=== PATIENT | female | born 1990 | race Caucasian/White ===

== ENCOUNTER 2021-07-25 09:58 | Inpatient (IN) | payer OTHER ==
[~2021-07-25] VITALS: Ht 172.7 cm; Wt 79.4 kg
--- NOTE | 2021-07-25 11:30 | NUR ---
both nares swabbed for covid-19 without complication. sample taken to lab.
--- NOTE | 2021-07-25 17:17 | NUR ---
07/25/21 1717 Berkley Razo 1715 PATIENT RECEIVING BLOCKS FROM WES BORING MACHINE SET UP OPERATOR IN OR [facility]. PATIENT AWAKE BUT DROWSY. BREAST FEEDING TO LEFT BREAST WITH FBC RN AT BEDSIDE. RESP EVEN AND UNLABORED, ROOM AIR SATS >93%. PATIENT DENIES PAIN OR NAUSEA.
[2021-07-26] MEDS ORDERED: DIGOX125 MCG PO (06:13)
[2021-07-26] MEDS ORDERED: BUPRENORPHINE HC2 MG SL (07:21)
--- NOTE | 2021-07-26 08:32 | PR ---
[facility] [address] [facility] [place], [place] [address] Signed PP Progress Notes Datetime Report Generated by CPN: 07/26/2021 08:32 SUBJECTIVE: [id number] Pain: Within Normal Limits Nausea/Vomiting: Denies Flatus: No Bowel Movement: No Vital Signs: [id number] Vital Signs: Reviewed; Within Normal Limits EXAM: Ongoing Cardiovascular: Normal Respiratory: Normal Abdomen/Uterus: Normal Lochia: Normal Breasts: Normal Extremities: Normal Incision: Normal Progress: Normal Exam Comments: NAD, sitting in bed RRR No dyspnea Abd SNTND Ext trace edema, neg Mariam's BL IMPRESSION/PLAN/PROCEDURES: [id number] Impression: Normal Progression Plan: Continue Present Management; Consult Procedures: None Progress Notes: POD #1 s/p RLTCS @ 36 5/7 weeks gestation for nonreassuring testing and MFM recommendation to deliver -Progressing well -Pain well controlled with TAP block -Recommend assistance with FGR baby Signing Physician: Corey Sherwood DO Copies: *Electronically Signed* 07/26/21 0832 COREY SHERWOOD DO PATIENT NAME: MARIAH CHRISTIAN PROGRESS NOTE DATE OF : 86 PHYSICIAN: COREY SHERWOOD DO RPT #: [id number] REPORT IS CONFIDENTIAL AND NOT TO BE RELEASED WITHOUT AUTHORIZATION [address] [address] Signed ~ *Electronically Signed* 07/26/21 0832 COREY SHERWOOD DO PATIENT NAME: MARIAH CHRISTIAN PROGRESS NOTE DATE OF : [birth year] PHYSICIAN: COREY SHERWOOD DO RPT #: [id number] REPORT IS CONFIDENTIAL AND NOT TO BE RELEASED WITHOUT AUTHORIZATION
--- NOTE | 2021-07-27 10:12 | PR ---
[facility] [address] [place], [place] [address] Signed PP Progress Notes Datetime Report Generated by CPN: 07/27/2021 10:12 SUBJECTIVE: [id number] Pain: Within Normal Limits Nausea/Vomiting: Denies Flatus: Yes Bowel Movement: Yes Vital Signs: [id number] Vital Signs: Reviewed; Within Normal Limits EXAM: Ongoing Cardiovascular: Normal Respiratory: Normal Abdomen/Uterus: Normal Lochia: Normal Vulva/Perineum: Normal Breasts: Normal Extremities: Normal Incision: Normal Progress: Normal Exam Comments: NAD, ambulating around room RRR, no pallor No dyspnea/retractions Abd SNTND, FFBU, incision c/d/i and healing well Ext: trace edema Neg Mariam's BL IMPRESSION/PLAN/PROCEDURES: [id number] Impression: Normal Progression; Pain Plan: Continue Present Management Other Plans: Anesthesia consult Procedures: None Progress Notes: POD#2 s/p RLTCS for FGR @ 36 5/7 weeks gestation -alternating tylenol/motrin for pain, ice to incision helpful but still having breakthrough incisional pain. Per our pain management plan, will repeat TAP block. Anesthesia notified. -otherwise progressing well Anticipate DC to boarder status tomorrow, baby on 5 day monitoring for SANDRITA Signing Physician: Corey Sherwood DO *Electronically Signed* 07/27/21 1012 COREY SHERWOOD DO PATIENT NAME: MARIAH CHRISTIAN PROGRESS NOTE DATE OF : 86 PHYSICIAN: COREY SHERWOOD DO RPT #: [id number] REPORT IS CONFIDENTIAL AND NOT TO BE RELEASED WITHOUT AUTHORIZATION [facility] [address] [place], [place] [address] Signed Copies: ~ *Electronically Signed* 07/27/21 1012 COREY SHERWOOD DO PATIENT NAME: MARIAH CHRISTIAN PROGRESS NOTE DATE OF : 86 PHYSICIAN: COREY SHERWOOD DO RPT #: [id number] REPORT IS CONFIDENTIAL AND NOT TO BE RELEASED WITHOUT AUTHORIZATION
--- NOTE | 2021-07-28 12:47 | PR ---
[facility] [address] [place], [place] [address] Signed PP Progress Notes Datetime Report Generated by CPN: 07/28/2021 12:47 SUBJECTIVE: [id number] Pain: Within Normal Limits Nausea/Vomiting: Denies Flatus: Yes Bowel Movement: Yes Vital Signs: [id number] Vital Signs: Reviewed; Within Normal Limits EXAM: Ongoing Cardiovascular: Normal Respiratory: Normal Abdomen/Uterus: Normal Lochia: Normal Vulva/Perineum: Normal Breasts: Normal Extremities: Normal Incision: Normal Progress: Normal Exam Comments: NAD, sitting in bed nursing baby RRR No dyspnea/ retractions Abd SNTND, FFBU Incision: c/d/i, sandra in place Ext: trace edema, Neg Mariam's BL IMPRESSION/PLAN/PROCEDURES: [id number] Impression: Normal Progression Plan: Continue Present Management; Discharge Other Plans: Anesthesia consult Procedures: None Progress Notes: POD#3 s/p RLTCS for FGR/ nonreassuring status at 36 5/7 weeks gestation -Baby to be monitored for total of 5 d for SANDRITA on buprenorphine -Pain well-controlled with TAP blocks and scheduled motrin/ tylenol Anticipate DC to boarder status, will leave sandra in place until baby discharged home Signing Physician: Corey Sherwood DO *Electronically Signed* 07/28/21 1247 COREY SHERWOOD DO PATIENT NAME: MARIAH CHRISTIAN PROGRESS NOTE DATE OF : 86 PHYSICIAN: COREY SHERWOOD DO RPT #: [id number] REPORT IS CONFIDENTIAL AND NOT TO BE RELEASED WITHOUT AUTHORIZATION [address] [address] Signed Copies: ~ *Electronically Signed* 07/28/21 1247 COREY SHERWOOD DO PATIENT NAME: MARIAH CHRISTIAN PROGRESS NOTE DATE OF : [birth year] PHYSICIAN: COREY SHERWOOD DO RPT #: [id number] REPORT IS CONFIDENTIAL AND NOT TO BE RELEASED WITHOUT AUTHORIZATION
--- NOTE | 2021-07-31 08:52 | OR ---
[address] [place], [place] [address] Signed DATE OF OPERATION: Electronically Signed By: COREY SHERWOOD DO 07/31/21 0852 PATIENT NAME: MARIAH CHRISTIAN OPERATIVE REPORT DATE OF : 86 REPORT #: [id number] PHYSICIAN: COREY SHERWOOD DO PCP: MARITZA QUINTERO MD REPORT IS CONFIDENTIAL AND NOT TO BE RELEASED WITHOUT AUTHORIZATION [address] [place], [place] [address] Signed 07/25/2021 SURGEON: Corey Sherwood DO PROCEDURE: Repeat low-transverse . PREOPERATIVE DIAGNOSES: 1. Asymmetric growth restriction. 2. Non-reassuring status. 3. Oligohydramnios. 4. History of prior . 5. History of demise. 6. Substance use disorder. 7. 36 weeks gestation. POSTOPERATIVE DIAGNOSES: 1. growth restriction. 2. Non-reassuring status. 3. Oligohydramnios. 4. History of prior . 5. History of demise. 6. Substance use disorder. 7. 36 weeks gestation. WATCH DIAL STONER: Maritza Quintero MD COMPLICATIONS: None. BLOOD LOSS: 550 mL. FINDINGS: Viable male , Apgars 9 and 9 at 1 and 5 minutes respectively, weighing 4 pounds 11 ounces, delivered in the right occiput anterior position. Normal-appearing bilateral tubes and ovaries. Moderate scarring down to the level of the rectus fascia. No bladder adhesions or intra-abdominal adhesions noted. INDICATIONS: Electronically Signed By: COREY SHERWOOD DO 07/31/21 0852 PATIENT NAME: MARIAH CHRISTIAN OPERATIVE REPORT DATE OF : 86 REPORT #: [id number] PHYSICIAN: COREY SHERWOOD DO PCP: MARITZA QUINTERO MD REPORT IS CONFIDENTIAL AND NOT TO BE RELEASED WITHOUT AUTHORIZATION [address] [address] Signed The patient is a 30-year-old female at 36 5/7 weeks gestation who has been closely followed this for history of demise and history of intrauterine growth restriction. She has been diagnosed during this with asymmetric growth restriction with abdominal circumference measuring less than 3rd percentile. She was scheduled for testing today which was included FARHAT 4.2 (MVP 2.4) and 2 points off on BPP for breathing. Case was discussed with maternal medicine who recommended delivery today rather than wait until scheduled in two days. Risks, benefits, and alternatives were discussed with the patient who elected to proceed. DESCRIPTION OF PROCEDURE: The patient was taken back to the operating room where she was given 2 g Ancef and combined spinal and epidural were placed by anesthesia as per her preoperative pain management plan. She was positioned supine with a leftward tilt and prepped and draped in the normal sterile fashion. A Pfannenstiel incision was made with a scalpel through her prior scar and carried down to the underlying layer of fascia with moderate scarring noted as above. The fascia was nicked laterally and extended with Lewis scissors. Inferior lip of the fascia was grasped and elevated with Vic clamps. Underlying rectus muscle dissected off bluntly and sharply with Lewis scissors without difficulty and fascia was released. In a similar fashion, the superior margin of the fascia was grasped and elevated and underlying rectus muscle was dissected off bluntly and sharply with Lewis scissors again without significant difficulty. Peritoneum was grasped with hemostats, elevated and entered sharply with Metzenbaum scissors with good visualization. This was extended superiorly and inferiorly with Lewis scissors with good visualization of the bladder at all times. Hysterotomy was made with a scalpel and superior and inferior margins of hysterotomy were grasped with Allis-Bardolph to allow for further elevation to enter the uterus safely in the context of oligohydramnios. Hysterotomy was completed and extended laterally with gentle digital traction. head was easily elevated to the level of the hysterotomy and delivered through with remainder of the 's body delivered without any difficulty. The cord was immediately doubly clamped and cut and baby gave a strong spontaneous cry and baby was handed off to waiting nursery team. Cord blood was collected for type and Manuel. Segment of cord was set aside for additional substance testing and placenta was delivered manually and noted to be intact with a centrally inserted 3 vessel cord. Uterus was cleared of clots and debris. The bowel was packed with Electronically Signed By: COREY SHERWOOD DO 07/31/21 0852 PATIENT NAME: MARIAH CHRISTIAN OPERATIVE REPORT DATE OF : 86 REPORT #: [id number] PHYSICIAN: COREY SHERWOOD DO PCP: MARITZA QUINTERO MD REPORT IS CONFIDENTIAL AND NOT TO BE RELEASED WITHOUT AUTHORIZATION [facility] [address] [place], [place] [address] Signed a lap sponge soaked in sterile saline and the uterus was closed in a two-layer closure with 0 Monocryl, 1st in a running locked manner and secondly in an imbricating manner. An area of persistent oozing was noted just medial to the left apex. Figure of eight stitch with 0 Monocryl was placed with resulting hemostasis. The pelvis was suction irrigated with warm sterile saline and excellent hemostasis was noted. Uterus was inspected with tubes and ovaries noted to be normal as above. Bowel packing was removed. Eric retractor was removed. ACell sheet was placed overlying the hysterotomy. The peritoneum was closed with 2-0 Vicryl in a running fashion. Rectus muscle was reapproximated in midline with 0 Vicryl in a simple interrupted fashion. Perforating vessels were cauterized with Bovie cautery and ACell powder was applied over the rectus. Fascia was closed with 0 Vicryl working laterally to medially with two separate sutures in a running fashion, 1st from [id number] and then from [id number]-ov-zfyde meeting at midline. Subcutaneous layer was inspected for perforating vessels which were cauterized with Bovie cautery. This was then reapproximated with 3-0 Vicryl in a running fashion and skin was closed with skin clips. Sponge and instrument counts were correct. Uterus was Crede'd. Cervix was noted to be less than 1 cm dilated without any clots expelled from the uterus. The patient remained in the operating room for placement of TAP block for pain management. Corey Sherwood DO EMZ/MODL /[id number] Copies: ~ Electronically Signed By: COREY SHERWOOD DO 07/31/21 0852 PATIENT NAME: MARIAH CHRISTIAN OPERATIVE REPORT DATE OF : 86 REPORT #: [id number] PHYSICIAN: COREY SHERWOOD DO PCP: MARITZA QUINTERO MD REPORT IS CONFIDENTIAL AND NOT TO BE RELEASED WITHOUT AUTHORIZATION
== END 2021-07-28 17:02 | disposition home or self-care (01) | DRG 786 ==
LOC: FBCO 09:58 → US 10:00 → FBC 11:24
PROVIDERS: ADMIT Obstetrics & Gynecology; ATTEND Obstetrics & Gynecology
PROC: 3E0T3BZ Introduction of Anesthetic Agent into Peripheral Nerves and Plexi, Percutaneous Approach (ICD-10-PCS; 2021-07-25)
PROC: 10D00Z1 Extraction of Products of Conception, Low, Open Approach (ICD-10-PCS; principal; 2021-07-25 16:00)
DX: O36.5930 Maternal care for other known or suspected poor fetal growth, third trimester, not applicable or unspecified (principal); O60.14X0 Preterm labor third trimester with preterm delivery third trimester, not applicable or unspecified; O41.03X0 Oligohydramnios, third trimester, not applicable or unspecified; O99.324 Drug use complicating childbirth; O98.32 Other infections with a predominantly sexual mode of transmission complicating childbirth; Z3A.36 36 weeks gestation of pregnancy; Z20.822 Contact with and (suspected) exposure to COVID-19; Z37.0 Single live birth; O34.211 Maternal care for low transverse scar from previous cesarean delivery; F11.90 Opioid use, unspecified, uncomplicated; O76 Abnormality in fetal heart rate and rhythm complicating labor and delivery; A60.00 Herpesviral infection of urogenital system, unspecified
CPT/HCPCS: 01961; 76819; 76942; 85027; A9270; C9803; J0690; J1100; J1885; J2001; J2274; J2405; J2590; J2795; J7121; U0003

== ENCOUNTER 2023-10-07 10:22 | Inpatient (IN) | payer OTHER ==
[~2023-10-07] VITALS: Ht 172.7 cm; Wt 80.7 kg
--- NOTE | ~2023-10-07 | OR ---
[facility] [address] [place], [place] [address] Draft DATE OF OPERATION: 10/07/2023 SURGEON: Huy Pierre DO PREOPERATIVE DIAGNOSES: 1. Intrauterine at 36 weeks and 2 days gestation. 2. growth restriction. 3. Oligohydramnios. 4. History of prior section. 5. Opioid dependence, stable on buprenorphine. POSTOPERATIVE DIAGNOSES: 1. Intrauterine at 36 weeks and 2 days gestation. 2. growth restriction. 3. Oligohydramnios. 4. History of prior section. 5. Opioid dependence, stable on buprenorphine. 6. Abdominal adhesions. PROCEDURES PERFORMED: 1. Repeat low transverse delivery. 2. Lysis of adhesions. ANESTHESIA: Spinal with postoperative TAP block. PRODUCT MERCHANDISER: Sarahi Quintero MD ESTIMATED BLOOD LOSS: 650 mL. SPECIMEN: Placenta for IUGR and oligohydramnios. DRAINS: Cantu to gravity. COMPLICATIONS: None. PATIENT NAME: MARIAH CHRISTIAN OPERATIVE REPORT DATE OF : [birth year] REPORT #: [id number] PHYSICIAN: HUY PIERRE) PCP: NO PRIMARY CARE PHYSICIAN REPORT IS CONFIDENTIAL AND NOT TO BE RELEASED WITHOUT AUTHORIZATION [facility] [address] [place] [id number] [place] FINDINGS: Delivery of a viable male . Apgars X and X and weight X and X. Delivery in the KRYSTLE position with nuchal cord x1 loose. Clear amniotic fluid. Normal gross appearance of the placenta. Dense omental adhesions to the anterior abdominal wall. Careful vulvar exam demonstrates no HSV lesions. COMPLICATIONS: None. INDICATIONS: Ms. Christian is a very pleasant 32-year-old, G7, P0-3-3-3 with intrauterine at 36 weeks 2 days gestation presented for repeat testing. The patient's complicated by growth restriction and new onset oligohydramnios noted on ultrasound today. was also complicated by history of prior , buprenorphine dependence, stable on therapy. 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 Recommended a repeat low transverse delivery. Risks, benefits, and alternatives were discussed with the patient in detail. The case was previously discussed with Dr. Shyam Brooks, Maternal Medicine, who recommended delivery if the patient developed oligohydramnios. Risks, benefits, and alternatives were discussed in detail with the patient. The patient understands and wished to proceed with the procedure. TECHNIQUE: The patient was taken to the OR where a time-out was performed to confirm correct patient, correct procedure. Spinal anesthesia was adequately established. The patient was then prepped and draped in the supine position with a bump on the right hip. Vulvar exam was performed that demonstrated no HSV lesions and no evidence of rupture of membranes. The patient had previously denied prodrome of symptoms. A Cantu catheter was inserted. The patient received Ancef 2 g preoperatively per SCIP protocol and no heparin was indicated. Once spinal anesthetic was noted to be adequate, a Pfannenstiel skin incision was made using a surgical scalpel through the prior scar. Incision was carried down to the fascia and the fascia was nicked in the midline. Fascial incision was extended bilaterally using curved Lewis scissors. Fascia was grasped with Vic's, elevated, and the underlying rectus dissected off bluntly and sharply. The fascia was quite densely adhered to the fascia, but this brought down without difficulty. Rectus was then divided at the midline using hemostats and peritoneum was entered sharply with Metzenbaum scissors. Dense omental adhesions were noted to the anterior abdominal wall. These were gently taken down using bipolar cautery with LigaSure device. Once omental adhesions were freed, the remainder of the pelvis was inspected and found to be normal. The Eric self retractor was placed and lower uterine segment identified. Hysterotomy was performed using a surgical scalpel PATIENT NAME: MARIAH CHRISTIAN OPERATIVE REPORT DATE OF : 86 REPORT #: [id number] PHYSICIAN: HUY PIERRE (CAMILLE) DO PCP: NO PRIMARY CARE PHYSICIAN REPORT IS CONFIDENTIAL AND NOT TO BE RELEASED WITHOUT AUTHORIZATION [facility] [address] [place], [place] [address] Draft and clear amniotic fluid was noted. Hysterotomy was extended using blunt dissection. Surgeon's hand was placed in the uterine cavity. head elevated in the KRYSTLE position and delivered with the assistance of fundal pressure. Nuchal cord x1 was identified and reduced without difficulty. The was delivered without difficulty and was vigorous and cried upon delivery. Cord was doubly clamped and cut and the handed to waiting pediatric team for further care. Cord blood was obtained for routine analysis. The placenta was expressed, intact with a centrally inserted three-vessel cord with normal-appearing placenta. The uterus was cleared of any remaining products of conception or clot. Some brisk bleeding was noted from the left uterine artery and this was clamped with T clamp. The uterus was then closed in two layers of 0 Monocryl. The first being a running locked suture and the second being a running nonlocked suture. Small amount of oozing was noted along the hysterotomy repair and this was made hemostatic with multiple [id number]-wz-[id number] sutures of 0 Monocryl and 2-0 chromic. The pelvis was irrigated and found to be hemostatic. Normal tubes and ovaries were appreciated. The Eric self retractor was removed. Peritoneum was reapproximated using 2-0 Vicryl in a running nonlocked manner. Rectus was made hemostatic with judicious use of Bovie electrocautery and then re-approximated loosely in the midline with interrupted sutures of 0 Vicryl. The rectus was irrigated and found to be hemostatic and Meera was applied to this layer. The fascia was re-approximated using 0 Vicryl in a running nonlocked manner. Subcu was made hemostatic using judicious use of Bovie electrocautery. Subcu was re-approximated using 3-0 Vicryl in a running nonlocked manner. Skin was re-approximated using surgical sandra. The uterus was Crede'd for a scant amount of blood. Sponge, needle, and instrument counts correct x2 at the end of the procedure. Dr. Quintero was present and participated in all portions of the procedure. The patient remained in the OR for postoperative TAP block per Anesthesia. DO DANIELLA San/EDDI /[id number] Copies: PATIENT NAME: MARIAH CHRISTIAN OPERATIVE REPORT DATE OF : 86 REPORT #: [id number] PHYSICIAN: HUY PIERRE) PCP: NO PRIMARY CARE PHYSICIAN REPORT IS CONFIDENTIAL AND NOT TO BE RELEASED WITHOUT AUTHORIZATION [address] [address] Draft ~ PATIENT NAME: MARIAH CHRISTIAN OPERATIVE REPORT DATE OF : [birth year] REPORT #: [id number] PHYSICIAN: HUY PIERRE) PCP: NO PRIMARY CARE PHYSICIAN REPORT IS CONFIDENTIAL AND NOT TO BE RELEASED WITHOUT AUTHORIZATION
--- OUTSIDE RECORDS SUMMARY | ~2023-10-07 | XMS | Continuity of Care Document ---
Demographics + + + | Address | [address] | | | [place] [address] | + + + | Preferred Language | Unknown | + + + | Marital Status | Never | + + + | Jew Affiliation | Unknown | + + + | Race | White | + + + | Ethnic Group | Not or | + + + Author + + + | Author | [facility] | + + + | Organization | [facility] | + + + | Address | [address] | | | [place] [address] | + + + | Phone | | + + + Care Team Providers + + + + | Care Supervisor Filter Assembly Name | Role | Phone | + + + + Unavailable | Unavailable | + + + + Unavailable | Unavailable | + + + + Allergies No information. Encounters No information. Functional Status No information. Immunizations No information. Medications + + + + | date | description | facility | + + + + | 2023-07-15 00:00 | ibuprofen 800 mg oral | [facility] | | | tablet | [facility] | + + + + | 2023-08-05 00:00 | ibuprofen 800 mg oral | [facility] | | | tablet | [facility] | + + + + | 2023-08-13 00:00 | ibuprofen 800 mg oral | [facility] | | | tablet | [facility] | + + + + | 2023-08-14 00:00 | ibuprofen 800 mg oral | [facility] | | | tablet | [facility] | + + + + | 2023-08-27 00:00 | ibuprofen 800 mg oral | [facility] | | | tablet | [facility] | + + + + | 2023-09-22 00:00 | ibuprofen 800 mg oral | [facility] | | | tablet | [facility] | + + + + | 2023-10-01 00:00 | ibuprofen 800 mg oral | [facility] | | | tablet | [facility] | + + + + | 2023-10-02 00:00 | ibuprofen 800 mg oral | [facility] | | | tablet | [facility] | + + + + | 2023-07-15 00:00 | acetaminophen 500 mg oral | [facility] | | | tablet | [facility] | + + + + | 2023-08-05 00:00 | acetaminophen 500 mg oral | [facility] | | | tablet | [facility] | + + + + | 2023-08-13 00:00 | acetaminophen 500 mg oral | [facility] | | | tablet | [facility] | + + + + | 2023-08-14 00:00 | acetaminophen 500 mg oral | [facility] | | | tablet | [facility] | + + + + | 2023-08-27 00:00 | acetaminophen 500 mg oral | [facility] | | | tablet | [facility] | + + + + | 2023-09-22 00:00 | acetaminophen 500 mg oral | [facility] | | | tablet | [facility] | + + + + | 2023-10-01 00:00 | acetaminophen 500 mg oral | [facility] | | | tablet | [facility] | + + + + | 2023-10-02 00:00 | acetaminophen 500 mg oral | [facility] | | | tablet | [facility] | + + + + | 2023-07-15 00:00 | vitamin c 500 mg oral | [facility] | | | tablet | [facility] | + + + + | 2023-08-05 00:00 | vitamin c 500 mg oral | [facility] | | | tablet | [facility] | + + + + | 2023-08-13 00:00 | vitamin c 500 mg oral | [facility] | | | tablet | [facility] | + + + + | 2023-08-14 00:00 | vitamin c 500 mg oral | [facility] | | | tablet | [facility] | + + + + | 2023-08-27 00:00 | vitamin c 500 mg oral | [facility] | | | tablet | [facility] | + + + + | 2023-09-22 00:00 | vitamin c 500 mg oral | [facility] | | | tablet | [facility] | + + + + | 2023-10-01 00:00 | vitamin c 500 mg oral | [facility] | | | tablet | [facility] | + + + + | 2023-10-02 00:00 | vitamin c 500 mg oral | [facility] | | | tablet | [facility] | + + + + | 2023-07-15 00:00 | iron | [facility] | | | | [facility] | + + + + | 2023-08-05 00:00 | iron | [facility] | | | | [facility] | + + + + | 2023-08-13 00:00 | iron | [facility] | | | | [facility] | + + + + | 2023-08-14 00:00 | iron | [facility] | | | | [facility] | + + + + | 2023-08-27 00:00 | iron | [facility] | | | | [facility] | + + + + | 2023-09-22 00:00 | iron | [facility] | | | | [facility] | + + + + | 2023-10-01 00:00 | iron | [facility] | | | | [facility] | + + + + | 2023-10-02 00:00 | iron | [facility] | | | | [facility] | + + + + Problems + + + + | date | description | facility | + + + + | 2023-09-11 00:00 | history of substance abuse | [facility] | | | (situation) | [facility] | + + + + | 2023-09-11 00:00 | history of substance abuse | [facility] | | | (situation) | [facility] | + + + + | 2023-09-11 00:00 | History of substance use | [facility] | | | disorder | [facility] | + + + + | 2023-09-11 00:00 | History of substance use | [facility] | | | disorder | [facility] | + + + + Procedures No information. Results/Labs No information. Social History + + + + | date | description | facility | + + + + | 2023-07-15 00:00 | Current smoker | [facility] | | | | [facility] | + + + + | 2023-08-05 00:00 | Current smoker | [facility] | | | | [facility] | + + + + | 2023-08-13 00:00 | Current smoker | [facility] | | | | [facility] | + + + + | 2023-08-14 00:00 | Current smoker | [facility] | | | | [facility] | + + + + | 2023-08-27 00:00 | Current smoker | [facility] | | | | [facility] | + + + + | 2023-09-22 00:00 | Current smoker | [facility] | | | | [facility] | + + + + | 2023-10-01 00:00 | Current smoker | [facility] | | | | [facility] | + + + + | 2023-10-02 00:00 | Current smoker | [facility] | | | | [facility] | + + + + Vital Signs + + +---------+---------+ | date | measurement | value | units | + + +---------+---------+ | 2023-07-29 00:00 | BMI | 25.36 | kg/m2 | + + +---------+---------+ | 2023-07-29 00:00 | BP_diastolic | 71 | mmHg | + + +---------+---------+ | 2023-07-29 00:00 | BP_systolic | 122 | mmHg | + + +---------+---------+ | 2023-07-29 00:00 | heart_rate | 87 | /min | + + +---------+---------+ | 2023-07-29 00:00 | o2_saturation | 99 | % | + + +---------+---------+ | 2023-07-29 00:00 | temperature_metric | 36 | C | | | | | | + + +---------+---------+ | 2023-07-29 00:00 | | 96.8 | F | | | temperature_standar | | | | | d | | | + + +---------+---------+ | 2023-07-29 00:00 | weight_metric | 75.66 | kg | + + +---------+---------+ | 2023-07-29 00:00 | weight_standard | 166.8 | lb | + + +---------+---------+"
[~2023-10-07 10:22] MED LIST: BUPRENORPHINE HC2 MG SL; DIGOX125 MCG PO
[2023-10-07 13:06] LABS: HEMATOCRIT 34.3 % (35.0-50.0); HEMOGLOBIN 11.7 g/dL (12.0-18.0); MCH 29.5 (27-36); MCV 86.8 fl (81-99); RBC 3.96 M/ul (4.3-5.7); RDW 13.3 (10.5-15.0)
[2023-10-07 13:24] VITALS: BP 133/64
[2023-10-07 13:46] LABS: ABO O; ANTIBODY SCREEN NEGATIVE; RH POSITIVE
[2023-10-07 15:53] LABS: AMPHETAMINES, URINE NEGATIVE (NEGATIVE); BARBITURATES, URINE NEGATIVE (NEGATIVE); BENZODIAZEPINE, URINE NEGATIVE (NEGATIVE); BUPRENORPHINE, URINE POSITIVE (NEGATIVE); CANNABINOID, URINE NEGATIVE (NEGATIVE); COCAINE, URINE NEGATIVE (NEGATIVE); ECSTASY, URINE NEGATIVE (NEGATIVE); FENTANYL, URINE NEGATIVE (NEGATIVE); METHADONE, URINE NEGATIVE (NEGATIVE); OPIATES, URINE NEGATIVE (NEGATIVE); OXYCODONE, URINE NEGATIVE (NEGATIVE); PHENCYCLIDINE, URINE NEGATIVE (NEGATIVE)
[2023-10-07] MEDS ORDERED: TRANEXAMIC ACID IN NACL,ISO-OS 100 ML IV ONE (18:53)
[2023-10-07] MEDS ORDERED: OXYTOCIN 10 UNITS/ML VIAL ONE (18:57)
[2023-10-07] MEDS ORDERED: BUPIVACAINE 0.75% IN DEXTROSE 2 ML AMP ONE (18:57)
[2023-10-07] MEDS ORDERED: ondansetron HCL 4 MG/2 ML VIAL ONE (18:57)
[2023-10-07] MEDS ORDERED: LIDOCAINE HCL 2% 5 ML SDV ONE (18:57)
[2023-10-07] MEDS ORDERED: DEXAMETHASONE SOD PHOS 4 MG/ML VIAL ONE (18:57)
[2023-10-07] MEDS ORDERED: MORPHINE SULFATE 1 MG/ML VIAL ONE (18:57)
[2023-10-07] MEDS ORDERED: SODIUM CHLORIDE 0.9% 40 ML IV ONE (18:58)
[2023-10-07] MEDS ORDERED: Ropivacaine HCl 0.5% 30 ML VIAL ONE (18:58)
[2023-10-07] MEDS ORDERED: ePHEDrine sulfate 50 MG/ML AMP ONE (18:59)
[2023-10-07] MEDS ORDERED: CEFAZOLIN SODIUM 2 GM/20 ML SYR IV SCH (19:00)
[2023-10-07] MEDS ORDERED: LACTATED RINGER'S 1,000 ML IV SCH ×2 (19:00→21:13)
[2023-10-07] MEDS ORDERED: SOD+POT BICARB/CITRIC ACID 2 EA TABLET.EFF PO ONE (19:00)
[2023-10-07] MEDS ORDERED: LACTATED RINGER'S 1,000 ML IV PRN (19:00)
[2023-10-07] MEDS ORDERED: droPERidol 5 MG/2 ML VIAL ONE (20:00)
[2023-10-07] MEDS ORDERED: LACTATED RINGER'S 1,000 ML IV ONE ×3 (20:04)
[2023-10-07] MEDS ORDERED: METOCLOPRAMIDE HCL 10 MG/2 ML SDV ONE (20:23)
[2023-10-07] MEDS ORDERED: FAMOTIDINE 20 MG/ 2 ML VIAL ONE (20:23)
[2023-10-07] MEDS ORDERED: diphenhydrAMINE HCL 50 MG/ML VIAL IV PRN (20:45)
[2023-10-07] MEDS ORDERED: diphenhydrAMINE HCL 25 MG CAP PO PRN (20:45)
[2023-10-07] MEDS ORDERED: PROCHLORPERAZINE EDISYLATE 10 MG/2 ML VIAL IV PRN ×3 (20:45→21:15)
[2023-10-07] MEDS ORDERED: KETOROLAC TROMETHAMINE 30 MG/ML VIAL IV PRN (20:45)
[2023-10-07] MEDS ORDERED: METOCLOPRAMIDE HCL 10 MG/2 ML SDV IV PRN ×3 (20:45→21:15)
[2023-10-07] MEDS ORDERED: HYDROmorphone HCL 1 MG/ML SYR IV PRN (20:45)
[2023-10-07] MEDS ORDERED: IBLOOD GLUCOSE TEST STRIP 1 EA TEST VI PRN (20:45)
[2023-10-07] MEDS ORDERED: MEPERIDINE HCL 25 MG/1 ML VIAL IV PRN (20:45)
[2023-10-07] MEDS ORDERED: fentaNYL citrate 100 MCG/2 ML VIAL IV PRN (20:45)
[2023-10-07] MEDS ORDERED: ondansetron HCL 4 MG/2 ML VIAL IV PRN ×3 (20:45→21:15)
[2023-10-07] MEDS ORDERED: NALOXONE HCL 0.4 MG SYR IV PRN ×2 (20:45)
[2023-10-07] MEDS ORDERED: droPERidol 5 MG/2 ML VIAL IV PRN (20:45)
[2023-10-07] MEDS ORDERED: ACETAMINOPHEN 500 MG TAB PO PRN (21:15)
[2023-10-07] MEDS ORDERED: bisacodyL 10 MG SUPP PR PRN (21:15)
[2023-10-07] MEDS ORDERED: OXYCODONE HCL 5 MG TAB PO PRN (21:15)
[2023-10-07] MEDS ORDERED: OXYTOCIN/0.9 % SODIUM CHLORIDE 500 ML IV SCH (21:15)
[2023-10-07] MEDS ORDERED: PROMETHAZINE HCL 25 MG SUPP PR PRN (21:15)
[2023-10-07] MEDS ORDERED: PROMETHAZINE HCL 25 MG TAB PO PRN (21:15)
--- NOTE | 2023-10-07 21:17 | NUR ---
10/07/232116 AlexaSalome 2102- PT ARRIVES TO [facility] ROOM #104. PT IS DROWSY. ANSWER QUESTIONS EASILY. PT REPORTS NO PAIN OR NAUSEA. PT REPORTS SHAKING. WARM BLANKETS PROVIDED. EXTRUDER OPERATOR MULTIPLE OFFERS MEDICATION TO HELP STOP THE SHAKING. PT STATES SHE DOES NOT WANT IT AT THIS TIME. RESP EVEN AND UNLABORED. OXYGEN SAT HIGH 90'S ON RA. 18G IV TO RIGHT WRIST INFUSING WITH LR AND PITOCIN. 2105- PT REPORTS FEELING "PRESSURE" WITH FUNDAL CHECKS. DENIES ANY PAIN. PT'S SIGNIFICANT OTHER AT THE BEDSIDE TO UPDATE HER ABOUT THE BABY. 2113- PT RESTING WITH EYES CLOSED. EASILY ANSWERS QUESTIONS WHEN ASKED. PT APPEARS TO VISIBLY BE SHAKING LESS.
[2023-10-07 21:50] VITALS: BP 104/59
[2023-10-08] MEDS ORDERED: KETOROLAC TROMETHAMINE 30 MG/ML VIAL IV SCH (02:00)
[2023-10-08] MEDS ORDERED: ENOXAPARIN SODIUM 40 MG/0.4 ML SYR SUB-Q SCH (05:00)
[2023-10-08 05:56] LABS: HEMATOCRIT 31.1 % (35.0-50.0); HEMOGLOBIN 10.4 g/dL (12.0-18.0); MCH 29.3 (27-36); MCHC 33.5 g/dl (30-36); MCV 87.3 fl (81-99); RBC 3.57 M/ul (4.3-5.7); RDW 13.3 (10.5-15.0)
[2023-10-08] MEDS ORDERED: SIMETHICONE 125 MG TABLET CHEWABLE PO SCH (07:00)
[2023-10-08] MEDS ORDERED: SENNOSIDES/DOCUSATE 1 EA TAB PO SCH (09:00)
[2023-10-08] MEDS ORDERED: buprenorphine HCL 2 MG TAB.SUBL SL SCH (09:15)
--- NOTE | 2023-10-08 14:18 | PR ---
[facility] [address] [place] [address] Signed PP Progress Notes Datetime Report Generated by CPN: 10/08/2023 14:18 SUBJECTIVE: [id number] Pain: Within Normal Limits Nausea/Vomiting: Denies Flatus: Yes Bowel Movement: No Vital Signs: [id number] Vital Signs: Reviewed; Within Normal Limits Cardiovascular: Normal Respiratory: Normal Abdomen/Uterus: Normal Lochia: Normal Vulva/Perineum: Not Done Breasts: Not Done CVA Tenderness: Normal Extremities: Normal Incision: Normal Progress: Not Applicable Exam Comments: Fundus firm U-2 nontender. Incision healing well w/ sandra in place IMPRESSION/PLAN/PROCEDURES: [id number] Impression: Normal Progression Plan: Discharge Progress Notes: Pt seen and examined. Doing well. Ambulating, voiding, and tolerating full diet. Pain well controlled and cravings controlled w/ buprenorphine. Lochia minimal. Desires d/c to be near baby who was transferred to NICU at [facility] this morning. No other questions or concerns. Will monitor and discuss possible repeat TAP block prior to d/c w/ anesthesia. Signing Physician: Huy Pierre DO Copies: ~ *Electronically Signed* 10/08/23 1414 HUY PIERRE ([place]IL[place]) DO PATIENT NAME: MARIAH CHRISTIAN PROGRESS NOTE DATE OF : 86 PHYSICIAN: HUY PIERRE (JD) DO RPT #: [id number] REPORT IS CONFIDENTIAL AND NOT TO BE RELEASED WITHOUT AUTHORIZATION
[2023-10-08] MEDS ORDERED: SODIUM CHLORIDE 0.9% 40 ML IV ONE (17:21)
[2023-10-08] MEDS ORDERED: Ropivacaine HCl 0.5% 30 ML VIAL ONE (17:21)
[2023-10-08] MEDS ORDERED: LIDOCAINE HCL 2% 5 ML SDV ONE (17:21)
[2023-10-08] MEDS ORDERED: DEXAMETHASONE SOD PHOS 4 MG/ML VIAL ONE (17:21)
[2023-10-09] MEDS ORDERED: IBUPROFEN 600 MG TAB PO SCH (02:00)
--- NOTE | 2023-10-10 11:08 | PATH ---
[facility] [address], [place] [address] Signed SPECIMEN(S): A PLACENTA SPECIMEN SOURCE: A. 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 These findings, together with the gross examination, support the pathologic diagnosis. GROSS DESCRIPTION: The specimen, labeled and designated "Anahi, A" and designated on the requisition "placenta," is received fresh and placed in formalin and consists of crook discoid placenta with the following parameters: Umbilical cord: Insertion paramarginal, measurement 42 cm in length by 1.5 cm in diameter ; trivascular. Cord coiling index (per 10 cm): Four. Lesions: Not grossly identified. Membranes: Insertion site: Marginal, bridges to red-pink translucent. Rupture is 6.0 cm from edge of disc. Other: Not grossly identified. Chorionic Plate: Normal radiating vascular pattern, blue-purple and shiny. Lesions: Not grossly identified. Other: Not grossly identified. Maternal Surface: Red-brown fused cotyledons, complete. Lesions: Not grossly identified. Measurement: 15.0 x 15.0 x 2.8 cm. 371 g Cut Surface: Maroon and spongy. Lesions: Not grossly identified. Basal plate fibrin 0.1 cm in thickness. Other Findings: Not grossly identified. Cassette Summary: (A1) membranes and umbilical cord (A2) placenta parenchyma PATIENT NAME: MARIAH CHRISTIAN PATHOLOGY DATE OF : 86 REPORT #: [id number] PHYSICIAN: RUTH BRITT PCP: NO PRIMARY CARE PHYSICIAN REPORT IS CONFIDENTIAL AND NOT TO BE RELEASED WITHOUT AUTHORIZATION [facility] [address], [place] [address] Signed (A3) placenta parenchyma (A4) placenta parenchyma AC (under the direct supervision of a pathologist) The Gross Description was prepared using a voice recognition system. The report was reviewed for accuracy; however, sound-alike word errors, addition and/or deletions may occur. If there is any question about this report, please contact Client Services. ADDITIONAL NOTES: Immunohistochemical and/or in situ hybridization studies if performed in this case included appropriate positive controls that reacted as expected. This test was developed and its performance characteristics determined by [facility]. It has not been cleared or approved by the U.S. Food and Drug Administration. The FDA has determined that such clearance or approval is not necessary. This test is used for clinical purposes. It should not be regarded as investigational or for research. [facility] is certified under the Clinical Laboratory Improvement Amendments of 1988 (CLIA) as qualified to perform high complexity clinical laboratory testing. PERFORMING LABORATORY: Technical component was performed by [facility], [address] [place] [id number] (CLIA# [id number]). Professional interpretation was performed by [facility] [address] [place] [id number] Diagnostician: Carlo Lozoya MD Pathologist Electronically Signed 10/10/2023 Copies: ~ PATIENT NAME: ANAHIMARIAH OFELIA PATHOLOGY DATE OF : 86 REPORT #: [id number] PHYSICIAN: RUTH PATHOLOGY PCP: NO PRIMARY CARE PHYSICIAN REPORT IS CONFIDENTIAL AND NOT TO BE RELEASED WITHOUT AUTHORIZATION
== END 2023-10-08 18:10 | disposition home or self-care (01) | DRG 786 ==
LOC: US 10:22 → FBC 12:22
PROVIDERS: ADMIT Obstetrics & Gynecology; ATTEND Obstetrics & Gynecology
PROC: 0DNU0ZZ Release Omentum, Open Approach (ICD-10-PCS; 2023-10-07)
PROC: 10D00Z1 Extraction of Products of Conception, Low, Open Approach (ICD-10-PCS; principal; 2023-10-07 19:30)
DX: O34.211 Maternal care for low transverse scar from previous cesarean delivery (principal); O60.14X0 Preterm labor third trimester with preterm delivery third trimester, not applicable or unspecified; O41.03X0 Oligohydramnios, third trimester, not applicable or unspecified; O99.324 Drug use complicating childbirth; O98.32 Other infections with a predominantly sexual mode of transmission complicating childbirth; O36.5930 Maternal care for other known or suspected poor fetal growth, third trimester, not applicable or unspecified; Z3A.36 36 weeks gestation of pregnancy; Z37.0 Single live birth; F11.21 Opioid dependence, in remission; O99.62 Diseases of the digestive system complicating childbirth; K66.0 Peritoneal adhesions (postprocedural) (postinfection); A60.09 Herpesviral infection of other urogenital tract; O69.81X0 Labor and delivery complicated by cord around neck, without compression, not applicable or unspecified
CPT/HCPCS: 01961; 36415; 64488; 76818; 76819; 80307; 85027; 86850; 86900; 86901; 88307; A9270; J0690; J1100; J1650; J1790; J1885; J2001; J2274; J2405; J2590; J2765; J2795; J7121